=== PATIENT | female | born 1950 ===

== ENCOUNTER 2017-12-28 06:11 | Day surgery (SDC) | payer MEDICARE, MEDICAID ==
[2017-12-28] MEDS ORDERED: Midazolam 2 MG/2 ML VIAL ONE (08:18)
[2017-12-28] MEDS ORDERED: Propofol 10 mg/ml Inj (20 ML) ONE (08:18)
[2017-12-28] MEDS: HYDROmorphone 0.5 mg/0.5 ml ISec IVP PRN ×2 (09:17→09:35)
[2017-12-28] MEDS ORDERED: HYDROmorphone 0.5 mg/0.5 ml ISec IVP PRN (10:31)
[2017-12-28] MEDS ORDERED: Oxycodone/Acetaminophen 5/325 mg Tab PO STA (11:56)
--- NOTE | 2017-12-28 12:13 | RAD ---
PROCEDURE: Intraoperative Fluoroscopy. HISTORY: FX. RT. WRIST FINDINGS: Fluoroscopic assistance was provided for close reduction wrist fracture (right). Please refer to the operative report from TUCKER Billingsley DR, MD. Total fluoroscopic time (continuous mode) utilized during the procedure 54.2 (seconds). Total exam DLP: (mGy) 0.51
[2017-12-28 14:33] VITALS: BP 110/70; PULSE 66; RESP 20; TEMP 97.8; O2SAT 99
--- NOTE | 2018-01-02 18:42 | PCM.SURG1 ---
Surgeon's Initial Post Op Note - Surgeon's Notes Surgeon: Blaire Louis MD Lockstitch Waistline Joiner: Brooks German PA-C Type of Anesthesia: General LMA Pre-Operative Diagnosis: Right wrist. #1 displaced distal radius fracture. #2 displaced ulnar styloid fracture Operative Findings: Right wrist. #1 displaced distal radius fracture. #2 displaced ulnar styloid fracture Post-Operative Diagnosis: Right wrist. #1 displaced distal radius fracture. # 2 displaced ulnar styloid fracture Operation Performed: Right wrist: #1 closed reduction distal radius fracture. #2 closed reduction distal ulnar fracture. #3 placement in well padded long arm cast Specimen/Specimens Removed: specimen= none. complications= none. tourniquet time= 0 min. implants= none Estimated Blood Loss: EBL {In ML}: 0 Blood Products Given: N/A Drains Used: No Drains Post-Op Condition: Good Date of Surgery/Procedure: 12/28/17 Time of Surgery/Procedure: 08:00
--- NOTE | 2018-01-03 06:28 | OP ---
PROCEDURE DATE: 12/28/2017 PREOPERATIVE DIAGNOSES: Right wrist; 1. Displaced distal radius fracture. 2. Displaced ulnar styloid fracture. POSTOPERATIVE DIAGNOSES: Right wrist; 1. Displaced distal radius fracture. 2. Displaced ulnar styloid fracture. PROCEDURES: Right wrist; 1. Closed reduction, distal radius fracture. 2. Closed reduction, distal ulnar fracture. 3. Placement of well-padded long arm cast with good mold. SURGEON: Blaire Louis MD. ELECTROMATIC TYPIST: Brooks German PA-C. ANESTHESIA: General LMA anesthesia. SPECIMENS: None. COMPLICATIONS: None. TOURNIQUET TIME: 0 minutes. IMPLANTS: None. DRAINS: None. DISPOSITION: The patient was extubated and transferred to PACU in stable condition and tolerated the procedure well. ESTIMATED BLOOD LOSS: 0 mL. INDICATIONS FOR PROCEDURE: The patient is a 67-year-old female with no significant past medical history who presented to my office for the first time on 12/24/2017 with right wrist pain, swelling, and deformity. She stated that on 12/18/2017 she had a mechanical fall, landing on her right wrist resulting in immediate 10/10 pain localized to the right wrist and swelling with inability to tolerate any range of motion or movement to the right wrist. She was seen at the ER at [facility] on 12/18/2017 and placed in a sugar-tong splint and told to follow up with an orthopedic surgeon. On presentation in the office, the splint was removed and x-rays were taken that revealed a 100% displaced distal radius fracture with displaced distal ulnar fracture with loss of radial height and angulation. An attempted close reduction was carried out in the office, but the patient did not tolerate any manipulation due to the degree of pain. She was indicated for a close reduction to the distal radius and ulnar fractures under anesthesia. She was referred to primary care physician for preoperative medical evaluation and preadmission testing, and the procedure was scheduled at [facility] on 12/28/2017. The risks, benefits and alternatives of the procedure were discussed at length with the patient and their family with the use of Telugu speaking manifest/order organizer print orders with the risks include but not limited to infection, neurovascular damage, malunion, nonunion, stiffness, need for further surgery, loss of reduction, development of chronic pain and disability, development of blood clots including DVT and PE, iatrogenic injury and fracture, anesthesia reactions including , and perioperative cardiopulmonary complications. After answering all the questions, she stated that she understood the risks and wished to proceed with the procedure. She was scheduled at [facility] on 12/28/2017. As a temporizing measure, she was placed in a long arm sugar-tong splint in my office with minimal manipulation that the patient did not tolerate. PROCEDURE IN DETAIL: The patient was identified in the preoperative holding area and the splint was removed and the right wrist was marked for the procedure. Once again with the use of a Telugu speaking manifest/order organizer print orders, the risks, benefits, and alternatives of the procedure were discussed at length with the patient and her family. An informed consent was obtained. After a brief discussion with Anesthesia staff, the patient was taken to the operating room and placed in a well-padded operating room table with all bony prominences and superficial neurovascular structures well-padded. LMA anesthesia was administered without difficulty or complication by Anesthesia staff. With the help of my entry level administrative assistant, traction was applied and initial biplanar fluoroscopic imaging showing the displaced fracture was taken. The imaging revealed 100% displaced distal radius fracture with volar translation and loss of height and angulation. The distal ulnar styloid fracture was also displaced. There was a question about scapholunate ligament interval widening, which will be addressed at her followups in the office and if indeed she does widen, despite best treatment in the cast after a close reduction and compliance with the cast, then we will address that issue as well. Final time-out was done with the surgeon, Anesthesia staff, OR staff, all in agreement with the patient, procedure being done and extremity being operated on. With the help of my entry level administrative assistant, traction was applied to the fingers and a close reduction maneuver was carried out establishing an anatomic reduction of the distal radius and the distal ulna. This was confirmed with the use of biplanar fluoroscopic imaging. A well-padded short arm cast was placed initially with a good mold to maintain the fracture reduction. When the cast hardened and the mold hardened, the anatomic reduction was confirmed to be maintained with biplanar fluoroscopic imaging. At that point in time, the cast was extended beyond the elbow with a long-arm cast with good padding. Once the cast hardened in a neutral position at 90 degrees flexion at the elbow, then at that point in time, a final fluoroscopic biplanar imaging was taken of the elbow, the forearm and the distal radius, confirming maintenance of the fracture of anatomic reduction and placement of a well-padded long arm cast. Once the cast hardened, the patient was then extubated from anesthesia and transferred to PACU in stable condition, and tolerated the procedure well. DISPOSITION: The patient will be discharged home once she has recovered from anesthesia. She will be given a prescription for Percocet for pain control. She will follow up in my office within 1 week and already has a postoperative appointment set up. Cast care was discussed at length with the patient. She will attempt to elevate the wrist above the level of her heart as much as possible. She will contact me directly with any questions or concerns. Blaire Louis MD
== END 2017-12-28 13:30 | disposition home or self-care (01) ==
LOC: C.SDS 06:11
PROVIDERS: ATTEND Student in an Organized Health Care Education/Training Program
DX: S52.542A Smith's fracture of left radius, initial encounter for closed fracture (principal); S52.612A Displaced fracture of left ulna styloid process, initial encounter for closed fracture
CPT/HCPCS: 25605; J1170; J2250; J2704; J3010